=== PATIENT | female | born 1980 | race Caucasian/White ===

== ENCOUNTER 2017-12-04 15:11 | Emergency (ER) | payer OTHER ==
[~2017-12-04] VITALS: Ht 167.6 cm; Wt 68.2 kg
[2017-12-04 15:39] VITALS: BP 135/81; PULSE 85; RESP 18; TEMP 99.4
--- NOTE | 2017-12-04 15:44 | PD ---
HPI Chief Complaint: BA Time Seen by Provider: 15:39 Travel History International Travel<30 days: No Contact w/Intl Traveler<30days: No Traveled to known affect area: No History of Present Illness HPI 37-year-old female presents under Bender act [place] [employer]. According to her paperwork the patient had reportedly cut her wrist because she was feeling upset about her job, her, other social issues. The patient denies any desire to harm herself or anyone else. She does report a history of depression in regards to recent life stressors. She reports that she was trying to shave her arm from her razor that she bothered [employer] and she accidentally cut her left wrist. She reports that she lives in [place] and sees a psychiatrist there in regards to her depression. She is currently staying with her mother because her mother lives closer to [place] where she is being seen at the [facility]. She reports a history of recurrent hypoglycemia for which she has a dexcom5 monitor, fibromyalgia. Denies any drug or alcohol use. Last tetanus vaccination unknown. No other complaints at this time. [facility] Social History Alcohol Use: No Tobacco Use: No Allergies-Medications (Allergen,Severity, Reaction): Coded Allergies: latex (Verified Allergy, Intermediate, Rash, 12/04/17) Penicillins (Verified Allergy, Mild, Hives, 12/04/17) VOMITS, HIVES, FEVER Review of Systems Except as stated in HPI: all other systems reviewed are Neg Physical Exam Narrative GENERAL: Well-developed well-nourished female no acute distress SKIN: Warm and dry. Superficial abrasions on the volar left wrist. HEAD: Atraumatic. Normocephalic. EYES: Pupils equal and round. No scleral icterus. No injection or drainage. ENT: No nasal bleeding or discharge. Mucous membranes pink and moist. NECK: Trachea midline. No JVD. CARDIOVASCULAR: Regular rate and rhythm. No murmur appreciated. RESPIRATORY: No accessory muscle use. Clear to auscultation. Breath sounds equal bilaterally. GASTROINTESTINAL: Abdomen soft, non-tender, nondistended. Hepatic and splenic margins not palpable. MUSCULOSKELETAL: No obvious deformities. No clubbing. No cyanosis. No edema. NEUROLOGICAL: Awake and alert. No obvious cranial nerve deficits. Motor grossly within normal limits. Normal speech. PSYCHIATRIC: Anxious, depressed. Insight and judgment appear normal. Data Data Last Documented VS Vital Signs Date Time Temp Pulse Resp B/P (MAP) Pulse Ox O2 Delivery O2 Flow Rate FiO2 12/04/17 15:44 18 12/04/17 15:39 99.4 85 135/81 (99) Orders Orders Tetanus/Diphtheria Tox Adult (Tetanus/Di (12/04/17 15:45) Blood Glucose (12/04/17 15:40) Wound Care (12/04/17 15:40) Complete Blood Count With Diff (12/04/17 15:40) Comprehensive Metabolic Panel (12/04/17 15:40) Thyroid Stimulating Hormone (12/04/17 15:40) Ed Urine Pregnancytest Poc (12/04/17 15:40) Psych Screen (12/04/17 15:40) Drug Screen, Random Urine (12/04/17 15:40) Alcohol (Ethanol) (12/04/17 15:40) Acetaminophen (Tylenol) (12/04/17 16:15) Ibuprofen (Motrin) (12/04/17 17:00) Labs Laboratory Tests Test 12/04/17 15:55 12/04/17 16:00 White Blood Count 9.4 TH/MM3 Red Blood Count 4.32 MIL/MM3 Hemoglobin 14.0 GM/DL Hematocrit 40.4 % Mean Corpuscular Volume 93.5 FL Mean Corpuscular Hemoglobin 32.4 PG Mean Corpuscular Hemoglobin Concent 34.6 % Red Cell Distribution Width 13.2 % Platelet Count 210 TH/MM3 Mean Platelet Volume 8.9 FL Neutrophils (%) (Auto) 59.9 % Lymphocytes (%) (Auto) 32.2 % Monocytes (%) (Auto) 4.8 % Eosinophils (%) (Auto) 2.5 % Basophils (%) (Auto) 0.6 % Neutrophils # (Auto) 5.6 TH/MM3 Lymphocytes # (Auto) 3.0 TH/MM3 Monocytes # (Auto) 0.5 TH/MM3 Eosinophils # (Auto) 0.2 TH/MM3 Basophils # (Auto) 0.1 TH/MM3 CBC Comment DIFF FINAL Differential Comment Blood Urea Nitrogen 9 MG/DL Creatinine 0.83 MG/DL Random Glucose 82 MG/DL Total Protein 8.4 GM/DL Albumin 4.3 GM/DL Calcium Level 9.2 MG/DL Alkaline Phosphatase 65 U/L Aspartate Amino Transf (AST/SGOT) 21 U/L Alanine Aminotransferase (ALT/SGPT) 23 U/L Total Bilirubin 0.3 MG/DL Sodium Level 141 MEQ/L Potassium Level 4.3 MEQ/L Chloride Level 106 MEQ/L Carbon Dioxide Level 26.4 MEQ/L Anion Gap 9 MEQ/L Estimat Glomerular Filtration Rate 77 ML/MIN Thyroid Stimulating Hormone 3rd Gen 1.060 uIU/ML Ethyl Alcohol Level LESS THAN 3 MG/DL Urine Opiates Screen NEG Urine Barbiturates Screen NEG Urine Amphetamines Screen NEG Urine Benzodiazepines Screen NEG Urine Cocaine Screen NEG Urine Cannabinoids Screen POS MDM Medical Decision Making Medical Screen Exam Complete: Yes Emergency Medical Condition: Yes Medical Record Reviewed: Yes Differential Diagnosis Adjustment reaction, acute psychosis, major depressive disorder, depressive disorder not otherwise specified Narrative Course Mental health screening discussed with the patient. Psychiatric screen ordered. Medically cleared for psychiatric disposition. Bender act lifted by psychiatry, no medical issues that would warrant further hospitalization. Stable for discharge. Diagnosis Primary Impression: Medical clearance for psychiatric admission Med/Other Pt SpecificInfo: No Change to Meds Disposition: 01 DISCHARGE HOME Condition: Stable Anthony Russell December 04, 2017 15:44
[2017-12-04] MEDS ORDERED: TETANUS/DIPHTHERIA TOXOID ADULT 0.5 ML VIAL IM ONE (15:45)
[2017-12-04] MEDS ORDERED: ACETAMINOPHEN 325 MG TAB PO ONE (16:15)
[2017-12-04 16:23] LABS: AUTOMATED NEUTROPHIL # 5.6 TH/MM3 (1.8-7.7); BASOPHIL # 0.1 TH/MM3 (0-0.2); BASOPHIL % 0.6 % (0.0-2.0); EOSINOPHIL # 0.2 TH/MM3 (0-0.4); EOSINOPHIL % 2.5 % (0.0-4.0); HEMATOCRIT 40.4 % (35.0-46.0); LYMPH % 32.2 % (9.0-44.0); MEAN CELL VOLUME 93.5 FL (80.0-100.0); MEAN CORPUSCULAR HEMOGLOBIN 32.4 PG (27.0-34.0); MEAN CORPUSCULAR HGB CONC 34.6 % (32.0-36.0); MEAN PLATELET VOLUME 8.9 FL (7.0-11.0); MONO % 4.8 % (0.0-8.0); MONOCYTE # 0.5 TH/MM3 (0-0.9); NEUT % 59.9 % (16.0-70.0); PLATELET COUNT 210 TH/MM3 (150-450); RED BLOOD COUNT 4.32 MIL/MM3 (4.00-5.30); RED CELL DISTRIBUTION WIDTH 13.2 % (11.6-17.2); WHITE BLOOD COUNT 9.4 TH/MM3 (4.0-11.0)
[2017-12-04] MEDS ORDERED: IBUPROFEN 800 MG TAB PO ONE (17:00)
[2017-12-04 17:09] LABS: ALBUMIN 4.3 GM/DL (3.4-5.0); BLOOD UREA NITROGEN 9 MG/DL (7-18); CALCIUM 9.2 MG/DL (8.5-10.1); CREATININE 0.83 MG/DL (0.50-1.00); GLOMERULAR FILTRATION RATE 77 ML/MIN (>89); GLUCOSE,RANDOM 82 MG/DL (74-106); TOTAL PROTEIN 8.4 GM/DL (6.4-8.2)
[2017-12-04 17:10] LABS: ALKALINE PHOSPHATASE 65 U/L (45-117); ALT (GPT) 23 U/L (10-53); AST (GOT) 21 U/L (15-37); BICARBONATE 26.4 MEQ/L (21.0-32.0); CHLORIDE 106 MEQ/L (98-107); SODIUM (NA) 141 MEQ/L (136-145); TOTAL BILIRUBIN ADULT 0.3 MG/DL (0.2-1.0)
--- NOTE | 2017-12-04 21:06 | PD ---
History of Present Illness Chief Complaint: Psychiatric Symptoms Time Seen by Provider: 20:45 Travel History International Travel<30 Days: No Contact w/Intl Traveler<30days: No Known affected area: No Legal Status Legal Status: Bender Act Bender Act Signed By: Skyler Wheat Bender Act Comment: Deputy Riri Mckeon #[id number] History of Present Illness: History of Present Illness HPI 37-year-old, , female with psychiatric history positive for depression, presents under Bender act [place] by [place] [employer]. According to her paperwork the patient had reportedly cut her wrist because she was feeling upset about her job, her, other social issues. The patient self-inflicted very superficial and small lacerations to the inner aspect of her wrist. Patient states that she did not intend to cut her wrists but that rather it was an accidental cod while she was trying out a razor that she had bought. Patient denies any previous history of self-injurious behavior. She denies any suicidal or homicidal ideation intent or plan. She verbalizes her concern at being here and possibly missing an appointment that she has at the [facility] on Monday. She also tells me that she needs to do a special preparation for that test tomorrow and she does not want to in any way jeopardize that. EMR is reviewed. No previous contact with [facility]. Current toxicology is positive for cannabinoids. Telephone call to her motherJacinda at [phone]. Mother reports that she does not believe that the patient had any intention of harming herself. She has no concerns for her safety idf she were to be released and she will pick her up from the hospital. Psychiatric History Psychiatric History Hx Psychiatric Treatment: Pt admits to seeing a psychiatrist willingly for symptoms of depression due to multiple medical issues. She has been prescribed Lexapro. No previous suicide attempt. No previous self injuries behavior. History of Inpatient Treatment: No Guns or firearms in home: No Social History . Lives with her . She lives in [facility] but is staying here with her mother because her mother lives closer to [facility]. Patient is a schoolteacher. Is currently unemployed due to her multiple medical problems. No history of abuse was reported. Hx Alcohol Use: No Hx Tobacco Use: No Hx Substance Use: No Hx of Substance Use Treatment: No Family Psychiatric History Negative Allergies-Medications (Allergen,Severity, Reaction): Coded Allergies: latex (Verified Allergy, Intermediate, Rash, 12/04/17) Penicillins (Verified Allergy, Mild, Hives, 12/04/17) VOMITS, HIVES, FEVER Review of Systems Musculoskeletal: COMPLAINS OF: Joint pain, Back pain Psychiatric: COMPLAINS OF: Depression Except as stated in HPI: all other systems reviewed are Neg Mental Status Examination Appearance: Appropriate (Dressed in [facility] and maintaining basic hygiene) Consciousness: Alert Orientation: x4 Motor Activity: Normal gait Speech: Unremarkable Language: Adequate Fund of Knowledge: Adequate Attention and Concentration: Adequate Memory: Unremarkable Mood: Appropriate, Anxious Affect: Appropriate Thought Process & Associations: Intact, Logical, Goal directed Thought Content: Appropriate Hallucination Type: None Delusion Type: None Suicidal Ideation: No Suicidal Plan: No Suicidal Intention: No Homicidal Ideation: No Homicidal Plan: No Homicidal Intention: No Insight: Fair Judgment: Adequate MDM Medical Decision Making Medical Record Reviewed: Yes Assessment/Plan 37-year-old, , female with psychiatric history positive for depression, presents under Bender act [place] by [place] [employer]. According to her paperwork the patient had reportedly cut her wrist because she was feeling upset about her job, her, other social issues. The patient self-inflicted very superficial and small lacerations to the inner aspect of her wrist. Patient states that she did not intend to cut her wrists but that rather it was an accidental cod while she was trying out a razor that she had bought. Patient denies any previous history of self-injurious behavior. She denies any suicidal or homicidal ideation intent or plan. I have contacted the patient's mother with the patient's verbal authorization. The mother has no concerns for her safety if she were to be discharged and states that she did does not think that the patient was trying to kill herself. I have provided both patient and the mother with instructions to return to the ED if any changes and this is as a general safety plan. The patient does not present evidence of unstable mental illness as defined under the Bender act and therefore does not meet criteria. She is requesting to be discharged. She is future oriented. She has adequate support at home. The Bender act will be lifted. Psychiatric clear for discharge from the ED. Orders Orders Tetanus/Diphtheria Tox Adult (Tetanus/Di (12/04/17 15:45) Blood Glucose (12/04/17 15:40) Wound Care (12/04/17 15:40) Complete Blood Count With Diff (12/04/17 15:40) Comprehensive Metabolic Panel (12/04/17 15:40) Thyroid Stimulating Hormone (12/04/17 15:40) Ed Urine Pregnancytest Poc (12/04/17 15:40) Psych Screen (12/04/17 15:40) Drug Screen, Random Urine (12/04/17 15:40) Alcohol (Ethanol) (12/04/17 15:40) Acetaminophen (Tylenol) (12/04/17 16:15) Ibuprofen (Motrin) (12/04/17 17:00) Results Vital Signs Date Time Temp Pulse Resp B/P (MAP) Pulse Ox O2 Delivery O2 Flow Rate FiO2 12/04/17 15:44 18 12/04/17 15:39 99.4 85 18 135/81 (99) Laboratory Tests Test 12/04/17 15:55 12/04/17 16:00 White Blood Count 9.4 Red Blood Count 4.32 Hemoglobin 14.0 Hematocrit 40.4 Mean Corpuscular Volume 93.5 Mean Corpuscular Hemoglobin 32.4 Mean Corpuscular Hemoglobin Concent 34.6 Red Cell Distribution Width 13.2 Platelet Count 210 Mean Platelet Volume 8.9 Neutrophils (%) (Auto) 59.9 Lymphocytes (%) (Auto) 32.2 Monocytes (%) (Auto) 4.8 Eosinophils (%) (Auto) 2.5 Basophils (%) (Auto) 0.6 Neutrophils # (Auto) 5.6 Lymphocytes # (Auto) 3.0 Monocytes # (Auto) 0.5 Eosinophils # (Auto) 0.2 Basophils # (Auto) 0.1 CBC Comment DIFF FINAL Differential Comment Blood Urea Nitrogen 9 Creatinine 0.83 Random Glucose 82 Total Protein 8.4 Albumin 4.3 Calcium Level 9.2 Alkaline Phosphatase 65 Aspartate Amino Transf (AST/SGOT) 21 Alanine Aminotransferase (ALT/SGPT) 23 Total Bilirubin 0.3 Sodium Level 141 Potassium Level 4.3 Chloride Level 106 Carbon Dioxide Level 26.4 Anion Gap 9 Estimat Glomerular Filtration Rate 77 Thyroid Stimulating Hormone 3rd Gen 1.060 Ethyl Alcohol Level LESS THAN 3 Urine Opiates Screen NEG Urine Barbiturates Screen NEG Urine Amphetamines Screen NEG Urine Benzodiazepines Screen NEG Urine Cocaine Screen NEG Urine Cannabinoids Screen POS Diagnosis Primary Impression: Medical clearance for psychiatric admission Additional Impression: Adjustment disorder Psychiatrically Cleared: Yes Med/ Other Pt Specific Info: No Change to Meds Disposition: 01 DISCHARGE HOME Condition: Stable Problem Qualifiers Additional Impression: Adjustment disorder Qualified Codes: F43.21 - Adjustment disorder with depressed mood Nicole Fleming [facility] December 04, 2017 21:06
== END 2017-12-04 21:37 | disposition home or self-care (01) ==
LOC: NEPJ 15:11
DX: F43.21 Adjustment disorder with depressed mood (principal); S61.512A Laceration without foreign body of left wrist, initial encounter; X78.8XXA Intentional self-harm by other sharp object, initial encounter; Z23 Encounter for immunization
CPT/HCPCS: 80053; 80307; 84443; 84703; 85025; 90471; 90714